=== PATIENT | male | born 1990 | race African-American/Black ===

== ENCOUNTER 2020-07-31 16:40 | Emergency (ER) | payer SELFPAY ==
[2020-07-31 17:18] LABS: Bacteria/HPF None Seen HPF (None Seen); Bilirubin Negative (Negative); Blood, Urine Negative (Negative); Glucose, Urine (Dipstick) Normal (Negative); Ketone, Urine Negative (Negative); Leukocyte 75 Leu/uL (Negative); Nitrite Negative (Negative); Protein, Urine (Dipstick) 10 mg/dL (Neg-Trace); RBC/HPF 0-3 HPF (0-3); Specific Gravity, Urine 1.026 (1.002-1.036); Squamous Epithelial 0-3 HPF (0-3)
[2020-07-31 17:19] LABS: Clarity Cloudy (Clear)
[2020-07-31] MEDS ORDERED: cefTRIAXone\\ROCEPHIN 250 MG VIAL ONE (18:08)
[2020-07-31] MEDS ORDERED: Azithromycin 250 MG TAB ONE (18:08)
[2020-08-04 20:48] LABS: Chlam.trachomatis by PCR,Urine DETECTED (NotDetected)
== END 2020-07-31 18:42 | disposition home or self-care (01) ==
LOC: ERS 16:40
DX: Z20.2 Contact with and (suspected) exposure to infections with a predominantly sexual mode of transmission (principal); F17.210 Nicotine dependence, cigarettes, uncomplicated
CPT/HCPCS: 81003; 81015; 87491; 87591; 96372; 99283; J0696

== ENCOUNTER 2020-08-17 13:40 | Emergency (ER) | payer OTHER, SELFPAY | END 2020-08-17 15:03 | disposition home or self-care (01) | LOC: ERS 13:40 | DX: S39.011A Strain of muscle, fascia and tendon of abdomen, initial encounter (principal); M79.605 Pain in left leg; F17.210 Nicotine dependence, cigarettes, uncomplicated; V19.9XXA Pedal cyclist (driver) (passenger) injured in unspecified traffic accident, initial encounter | CPT/HCPCS: 99283 ==

== ENCOUNTER 2022-11-04 09:22 | Emergency (ER) | payer SELFPAY ==
[2022-11-04] MEDS ORDERED: Ibuprofen 200 MG TAB ONE (10:24)
== END 2022-11-04 10:25 | disposition home or self-care (01) ==
LOC: ERS 09:22
DX: M17.11 Unilateral primary osteoarthritis, right knee (principal); F17.210 Nicotine dependence, cigarettes, uncomplicated

== ENCOUNTER 2022-11-30 15:07 | Emergency (ER) | payer SELFPAY ==
[2022-11-30] MEDS ORDERED: Ketorolac Tromethamine 30 MG/ML VIAL ONE (15:43)
== END 2022-11-30 16:58 | disposition home or self-care (01) ==
LOC: ERS 15:07
DX: M25.561 Pain in right knee (principal); F17.210 Nicotine dependence, cigarettes, uncomplicated
CPT/HCPCS: 96372; J1885